=== PATIENT | female | born 1965 | race Caucasian/White ===

== ENCOUNTER 2016-11-01 15:20 | Emergency (ER) | payer OTHER ==
[~2016-11-01] VITALS: Ht 165.1 cm; Wt 72.6 kg
[2016-11-01 15:20] VITALS: BP_SYST 186
[2016-11-01] MEDS ORDERED: cloNIDine HCL 0.1 MG TABLET PO ONE ×2 (15:45→19:00)
[2016-11-01] MEDS ORDERED: HYDROcodone/ACETAMIN 10-325 MG TAB PO ONE (15:45)
[2016-11-01] MEDS ORDERED: ONDANSETRON 4 MG ODT TAB PO ONE (16:45)
[2016-11-01 19:14] VITALS: BP_SYST 152
== END 2016-11-01 19:14 | disposition home or self-care (01) ==
LOC: SED 15:20
DX: I10 Essential (primary) hypertension (principal); F41.9 Anxiety disorder, unspecified
CPT/HCPCS: 99284; Q0162